=== PATIENT | male | born 1955 ===

== ENCOUNTER 2025-01-07 11:42 | Emergency (ER) | payer MEDICARE ==
[2025-01-07] MEDS: Ketorolac 30 MG/ML SDV IM ONE (12:17)
[2025-01-07] MEDS: Acetaminophen 500 MG Tab PO ONE (12:18)
[2025-01-07] MEDS: Cephalexin 500 MG Cap PO ONE (12:18)
== END 2025-01-07 13:06 | disposition home or self-care (01) ==
LOC: DL.ED 11:42
DX: M25.572 Pain in left ankle and joints of left foot (principal); Z91.018 Allergy to other foods
CPT/HCPCS: 73600; 96372; 99284; A9270; J1885; 99283